=== PATIENT | female | born 1990 | race Caucasian/White ===

== ENCOUNTER 2017-05-18 20:42 | Emergency (ER) | payer MEDICAID ==
[2017-05-18 20:42] VITALS: BMI 28.1
[2017-05-18 21:04] VITALS: RESP 16; TEMP 98.5
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
[2017-05-18 23:03] VITALS: BP 126/74; PULSE 84
[2017-05-18 23:05] VITALS: O2SAT 99
== END 2017-05-18 23:02 | disposition home or self-care (01) ==
LOC: C.ER 20:42
DX: S09.90XD Unspecified injury of head, subsequent encounter (principal); Y04.2XXD Assault by strike against or bumped into by another person, subsequent encounter

== ENCOUNTER 2017-09-16 08:23 | Emergency (ER) | payer MEDICAID, OTHER ==
[2017-09-16 08:32] VITALS: BMI 30.5
--- NOTE | 2017-09-16 09:32 | C.PDOC ---
History Of Present Illness 27 y/o female A2 presents to ED with complaints of lower back pain and cramping abdominal pain for 1 week. Patient states 2 days ago she took Home test that was positive and denies dysuria, vaginal bleeding, fever, bowel/bladder incontinence or any other complaints at this time. LMP 08/21/17 Time Seen by Provider: 09/16/17 09:01 Chief Complaint (Nursing): Female Genitourinary History Per: Patient History/Exam Limitations: no limitations Onset/Duration Of Symptoms: Days Current Symptoms Are (Timing): Still Present Location Of Pain/Discomfort: Suprapubic Quality Of Discomfort: Cramping Associated Symptoms: Back Pain Past Medical History Reviewed: Historical Data, Nursing Documentation, Vital Signs Vital Signs: Last Vital Signs Temp 98.8 F 09/16/17 12:03 Pulse 62 09/16/17 12:03 Resp 16 09/16/17 12:03 BP 98/65 L 09/16/17 12:03 Pulse Ox 99 09/16/17 12:44 - Medical History PMH: Asthma (as a child) Surgical History: No Surg Hx - [facility] Procedures APPLICATION OF SPLINT (02/26/15) CL FX REDUC-METACAR/CAR (04/08/15) REPLAC M/S IMMOB DEV NEC (04/14/15) Family History: States: No Known Family Hx - Social History Hx Tobacco Use: No Hx Alcohol Use: Yes Hx Substance Use: No - Immunization History Hx Tetanus Toxoid Vaccination: No Hx Influenza Vaccination: No Hx Pneumococcal Vaccination: No Review Of Systems Constitutional: Negative for: Fever, Chills Gastrointestinal: Positive for: Abdominal Pain. Negative for: Nausea, Vomiting Genitourinary: Negative for: Dysuria, Vaginal Bleeding Musculoskeletal: Positive for: Back Pain Skin: Negative for: Rash Physical Exam - Physical Exam Appears: Non-toxic, No Acute Distress Skin: Normal Color, Warm Head: Atraumatic, Normacephalic Eye(s): bilateral: Normal Inspection Oral Mucosa: Moist Neck: Supple Cardiovascular: Rhythm Regular Respiratory: Normal Breath Sounds, No Rales, No Rhonchi, No Wheezing Gastrointestinal/Abdominal: Soft, Tenderness (Suprapubic ), No Guarding, No Rebound Back: No CVA Tenderness, No Paraspinal Tenderness Extremity: Normal ROM Extremity: Bilateral: Atraumatic Neurological/Psych: Oriented x3, Normal Motor, Normal Sensation ED Course And Treatment - Laboratory Results Result Diagrams: 09/16/17 09:27 09/16/17 09:27 O2 Sat by Pulse Oximetry: 99 (RA) Pulse Ox Interpretation: Normal - CT Scan/US Ob transvaginal Other Rad Studies (CT/US): Read By Radiologist, Radiology Report Reviewed CT/US Interpretation: HISTORY: with pain. COMPARISON: None available. TECHNIQUE: Transvaginal pelvic ultrasound was performed. FINDINGS : UTERUS: Measures 8.1 x 4.6 x 6.1 cm. Normal in size and appearance. No fibroid or other mass lesion seen. ENDOMETRIUM: There is diffuse thickening of the central endometrial echo complex. There are 2 tiny cystic areas within the endometrial cavity. CERVIX: No cervical abnormality identified. RIGHT OVARY: Measures 4.8 x 2.8 x 4.0 cm. No solid mass. Normal flow. There is a 2.5 x 2.0 x 2.2 cm septated cyst. LEFT OVARY: Measures 3.1 x 1.7 x 3.0 cm. No solid mass. Normal flow. FREE FLUID: There is a small amount of free fluid in the cul de sac and right adnexa. OTHER FINDINGS: None. IMPRESSION: Diffuse thickening of the central endometrial echo complex. Two tiny cystic areas within the central endometrial echo complex. No definite evidence for intrauterine gestational sac. 2.5 cm septated cyst in the right ovary. Small amount of free fluid in the pelvis. Medical Decision Making Medical Decision Making: Impression: abdominal pain, Plan: Beta HCG, UA, OB trans vaginal US, Tylenol ordered Progress: Labs reviewed. US report reviewed, see full report. Patient remained afebrile and in no acute distress. Discussed results with patient, and copy of report was provided. Patient is resting comfortably in no acute distress. I explained prognosis and follow up plan, advise to return in 48 hours for repeat BHCG. Patient feels comfortable going home and will be discharged. Instructed to return to ER if symptoms worsen or new symptoms arise. Disposition Counseled Patient/Family Regarding: Diagnosis, Need For Followup, Rx Given - Disposition [facility] Disposition: HOME/ ROUTINE Disposition Time: 12:36 Condition: STABLE Additional Instructions: You must follow up in 48 hours to repeat BHCG Follow up with your condenser tester for further evaluation Take Tylenol for any pain Instructions: (ED) Forms: [employer] ([place]) - POA Present On Arrival: None - Clinical Impression Clinical Impression: Positive test, Abdominal pain in - PA / CHOCOLATE DIPPER / Resident Statement MD/DO has reviewed & agrees with the documentation as recorded. - Scribe Statement The provider has reviewed the documentation as recorded by the Chelseaibdulce Ramírez All medical record entries made by the Chelseaibdulce were at my direction and personally dictated by me. I have reviewed the chart and agree that the record accurately reflects my personal performance of the history, physical exam, medical decision making, and the department course for this patient. I have also personally directed, reviewed, and agree with the discharge instructions and disposition.
[2017-09-16 09:34] LABS: BASO # 0.1 K/uL (0.0-0.2); BASO % 1.2 % (0.0-2.0); EOS # 0.2 K/uL (0.0-0.7); HEMATOCRIT 38.6 % (34.0-47.0); LYMPH # 1.8 K/uL (1.0-4.3); LYMPH % 21.9 % (20.0-40.0); MEAN CORPUSCULAR HEMOGLOBIN 33.9 pg (27.0-31.0); MEAN CORPUSCULAR HGB CONC 35.7 g/dL (33.0-37.0); MEAN PLATELET VOLUME 9.2 fL (7.2-11.7); MONO # 0.6 K/uL (0.0-0.8); MONO % 7.2 % (0.0-10.0); RED CELL DISTRIBUTION WIDTH 13.4 % (11.5-14.5); WHITE BLOOD COUNT 8.2 K/uL (4.8-10.8)
[2017-09-16 09:50] LABS: ALB/GLOB RATIO 1.5 (1.0-2.1); ALKALINE PHOSPHATASE 64 U/L (38-126); ALT/SGPT 23 U/L (9-52); AST/SGOT 18 U/L (14-36); BILIRUBIN,TOTAL 1.1 mg/dL (0.2-1.3); BLOOD UREA NITROGEN 13 mg/dL (7-17); CALCIUM 8.6 mg/dl (8.6-10.4); CARBON DIOXIDE 27 mmol/L (22-30); CHLORIDE 100 mmol/L (98-107); GFR AFRICAN-AMERICAN > 60; GLUCOSE,RANDOM 98 mg/dL (65-105); POTASSIUM 4.1 mmol/L (3.6-5.2); SODIUM 133 mmol/L (132-148); TOTAL PROTEIN 6.7 g/dL (6.3-8.3)
[2017-09-16 09:54] LABS: RBC URINE < 1 /hpf (0-3); URINE BACTERIA RARE (<OCC); URINE BILIRUBIN NEGATIVE (NEGATIVE); URINE BLOOD NEGATIVE (NEGATIVE); URINE COLOR Yellow (YELLOW); URINE GLUCOSE (UA) NORMAL (Normal); URINE KETONE NEGATIVE (NEGATIVE); URINE LEUKOCYTE ESTERASE NEG Leu/uL (Negative); URINE PROTEIN NEGATIVE (NEGATIVE); URINE UROBILINOGEN NORMAL mg/dL (0.2-1.0); WBC URINE 2 /hpf (0-5)
[2017-09-16 12:04] VITALS: BP 98/65; PULSE 62; RESP 16; TEMP 98.8
--- NOTE | 2017-09-16 12:12 | US ---
HISTORY: with pain COMPARISON: None available. TECHNIQUE: Transvaginal pelvic ultrasound was performed FINDINGS: UTERUS: Measures 8.1 x 4.6 x 6.1 cm. Normal in size and appearance. No fibroid or other mass lesion seen. ENDOMETRIUM: There is diffuse thickening of the central endometrial echo complex. There are 2 tiny cystic areas within the endometrial cavity. CERVIX: No cervical abnormality identified. RIGHT OVARY: Measures 4.8 x 2.8 x 4.0 cm. No solid mass. Normal flow. There is a 2.5 x 2.0 x 2.2 cm septated cyst. LEFT OVARY: Measures 3.1 x 1.7 x 3.0 cm. No solid mass. Normal flow. FREE FLUID: There is a small amount of free fluid in the cul de sac and right adnexa. OTHER FINDINGS: None. IMPRESSION: Diffuse thickening of the central endometrial echo complex. Two tiny cystic areas within the central endometrial echo complex. No definite evidence for intrauterine gestational sac. 2.5 cm septated cyst in the right ovary. Small amount of free fluid in the pelvis.
[2017-09-16 12:37] VITALS: O2SAT 99
== END 2017-09-16 13:17 | disposition home or self-care (01) ==
LOC: C.ER 08:23
DX: O26.899 Other specified pregnancy related conditions, unspecified trimester (principal); Z3A.00 Weeks of gestation of pregnancy not specified; M54.5 Low back pain